=== PATIENT | male | born 1940 | race Two or more races ===

== ENCOUNTER → 2021-04-01 08:00 | Outpatient (CLI) | payer OTHER | END | disposition home or self-care (01) | LOC: ADM 03-31 10:45 → LAB 08:00 → EDSEX 08:00 → EDSTATUS 04-07 10:45 → AMB-ENDOS 04-07 10:45 | PROVIDERS: ATTEND Surgery | DX: Z20.828 Contact with and (suspected) exposure to other viral communicable diseases (principal); C18.9 Malignant neoplasm of colon, unspecified; R19.4 Change in bowel habit; R93.5 Abnormal findings on diagnostic imaging of other abdominal regions, including retroperitoneum ==

== ENCOUNTER 2021-06-02 06:11 | Day surgery (SDC) | payer OTHER | END 2021-06-02 10:00 | disposition home or self-care (01) | LOC: AMB-ENDOS 06:11 | PROVIDERS: ATTEND Surgery | DX: K62.89 Other specified diseases of anus and rectum (principal); K64.8 Other hemorrhoids; Z20.822 Contact with and (suspected) exposure to COVID-19 ==